=== PATIENT | female | born 1940 | race Caucasian/White ===

== ENCOUNTER → 2016-06-21 | Outpatient (CLI) | payer MEDICARE, BC ==
[~2016-06-21] MED LIST: B CO1CAP5 PO; CALC1CAP8 PO; CALC625T68 PO; CHOL100018 PO; EZET10TA3 PO; LEVO100T PO; LISI5TAB7 PO; LYSI500T PO; MEMA10TA PO; MULT-717 PO; OMEG100023 PO
[2016-06-21 12:38] LABS: ASPARTATE AMINO TRANSFERASE 16 U/L (15-37); BLOOD UREA NITROGEN 19 mg/dL (7-18)
== END | disposition home or self-care (01) ==
LOC: STAR 10:59
PROVIDERS: ATTEND Urology
DX: Z01.818 Encounter for other preprocedural examination (principal); N20.0 Calculus of kidney
CPT/HCPCS: 36415; 71020; 80053; 81001; 85025; 87086; 93005

== ENCOUNTER 2016-07-07 09:29 | Day surgery (SDC) | payer MEDICARE, BC ==
[~2016-07-07] VITALS: Ht 157.5 cm; Wt 73.5 kg
[2016-07-07] MEDS ORDERED: LACTATED RINGERS 1,000 ML IV SCH (09:50)
[2016-07-07] MEDS ORDERED: FENTANYL PF 100 MCG/2ML ONE (09:57)
[2016-07-07] MEDS ORDERED: MIDAZOLAM 1 MG/ML, 2ML ONE (09:57)
[2016-07-07 10:19] VITALS: BP 148/84
[2016-07-07] MEDS ORDERED: ONDANSETRON 2MG/ML, 2ML ONE (11:24)
[2016-07-07] MEDS ORDERED: PHENYLEPHRINE 10 MG/ML ONE (11:24)
[2016-07-07] MEDS ORDERED: PROPOFOL 10 MG/ML, 20ML ONE (11:24)
[2016-07-07] MEDS ORDERED: DEXAMETHASONE 4 MG/ML, 1ML ONE (11:24)
[2016-07-07] MEDS ORDERED: LABETALOL 5MG/ML, 20ML IV PRN (11:30)
[2016-07-07] MEDS ORDERED: FENTANYL PF 100 MCG/2ML IV PRN (11:30)
[2016-07-07] MEDS ORDERED: ACETAMINOPHEN 325 MG TABLET PO PRN (11:30)
[2016-07-07] MEDS ORDERED: ONDANSETRON 2MG/ML, 2ML IVPush PRN (11:30)
[2016-07-07] MEDS ORDERED: METOCLOPRAMIDE 5 MG/ML, 2ML IV PRN (11:30)
[2016-07-07] MEDS ORDERED: OXYcodone 5 MG/5 ML ORAL.SOL UDC PO PRN (11:30)
[2016-07-07] MEDS ORDERED: PROMETHAZINE 25 MG/ML, 1ML IV PRN (11:30)
[2016-07-07] MEDS ORDERED: MEPERIDINE/PF 25MG/0.5ML IVPush PRN (11:30)
[2016-07-07] MEDS ORDERED: hydrALAzine 20 MG/ML, 1ML IV PRN (11:30)
[2016-07-07] MEDS ORDERED: HYDROmorphone 1 MG/ML, 1ML IV PRN (11:30)
== END 2016-07-07 15:20 | disposition home or self-care (01) ==
LOC: OUT 09:29
PROVIDERS: ATTEND Urology
DX: N20.1 Calculus of ureter (principal); I10 Essential (primary) hypertension; E03.9 Hypothyroidism, unspecified; E78.5 Hyperlipidemia, unspecified; K21.9 Gastro-esophageal reflux disease without esophagitis; Z87.440 Personal history of urinary (tract) infections; Z90.710 Acquired absence of both cervix and uterus; Z90.49 Acquired absence of other specified parts of digestive tract; Z82.49 Family history of ischemic heart disease and other diseases of the circulatory system; Z84.1 Family history of disorders of kidney and ureter; Z72.89 Other problems related to lifestyle
CPT/HCPCS: 50590; J1100; J2250; J2370; J2405; J2704; J3010; J7120